=== PATIENT | female | born 1965 | race African-American/Black ===

== ENCOUNTER 2017-01-18 16:00 | Outpatient (RCR) | payer BC ==
[~2017-01-18 16:00] MED LIST: CENTRUM1 TAB PO; CEPHALEXIN500 M1 PO; CIPRO 500MG TA500 MG PO; COMBIVENT INH14.7 GM IH; LASIX 20MG TABL20 MG PO; LEVAQUIN 750MG750 M1 PO; LOESTRIN 1/20 21DAY PO; NORCO 325 MG-7.1 TAB PO; POTASSIUM CH2 MEQ/ML PO; PREMARIN 0.9MG0.9 MG PO; PRILOTC; ZITHROMAX 250M250 MG PO; [UNRECOGNIZED DRUG - OTHER]
== END 2017-03-14 09:57 | disposition still patient (30) ==
LOC: WSOT 16:00
DX: M79.641 Pain in right hand (principal); M25.641 Stiffness of right hand, not elsewhere classified; R53.1 Weakness; R60.0 Localized edema

== ENCOUNTER → 2017-03-19 | Outpatient (CLI) | payer BC | LOC: MC.RAD 15:20 | DX: Z12.31 Encounter for screening mammogram for malignant neoplasm of breast (principal) ==

== ENCOUNTER → 2018-10-21 | Outpatient (CLI) | payer BC | LOC: MC.RAD 09:44 | DX: Z12.31 Encounter for screening mammogram for malignant neoplasm of breast (principal) ==

== ENCOUNTER → 2020-03-11 | Outpatient (CLI) | payer BC | LOC: MC.RAD 10:15 | DX: Z12.31 Encounter for screening mammogram for malignant neoplasm of breast (principal) ==

== ENCOUNTER → 2021-03-29 | Outpatient (CLI) | payer BC | LOC: MC.RAD 14:15 | DX: Z12.31 Encounter for screening mammogram for malignant neoplasm of breast (principal) ==

== ENCOUNTER 2022-06-25 18:47 | Emergency (ER) | payer BC ==
[~2022-06-25] VITALS: Ht 157.5 cm; Wt 96.4 kg
[2022-06-25 18:52] VITALS: TEMP 98.6
[2022-06-25] MEDS ORDERED: ZOFRAN ODT4 MG PO (19:44)
[2022-06-25 19:58] VITALS: BP 149/92; PULSE 103
== END 2022-06-25 20:00 | disposition home or self-care (01) ==
LOC: COL.ER 18:47
DX: S06.0X0A Concussion without loss of consciousness, initial encounter (principal); S00.83XA Contusion of other part of head, initial encounter; W18.30XA Fall on same level, unspecified, initial encounter; W22.8XXA Striking against or struck by other objects, initial encounter; Y92.009 Unspecified place in unspecified non-institutional (private) residence as the place of occurrence of the external cause

== ENCOUNTER → 2023-12-10 | Outpatient (CLI) | payer BC ==
[~2023-12-10] MED LIST changes: +Albuterol 0.083% Neb Soln 2.5 MG/3 ML UD IH ONE; +ZOFRAN ODT4 MG PO
== END ==
LOC: COL.CARD 08:32
DX: R06.09 Other forms of dyspnea (principal); R05.3 Chronic cough